=== PATIENT | female | born 1945 | race Caucasian/White ===

== ENCOUNTER 2017-03-31 15:15 | Emergency (ER) | payer OTHER, BC ==
[~2017-03-31] VITALS: Ht 160 cm; Wt 95.3 kg
[2017-03-31] MEDS ORDERED: TOPROL XL25 M1 PO (15:29)
== END 2017-03-31 20:57 | disposition home or self-care (01) ==
LOC: ER 15:15
DX: S43.015A Anterior dislocation of left humerus, initial encounter (principal); S01.422A Laceration with foreign body of left cheek and temporomandibular area, initial encounter; W26.8XXA Contact with other sharp object(s), not elsewhere classified, initial encounter; Y93.89 Activity, other specified; Y92.89 Other specified places as the place of occurrence of the external cause; Y99.8 Other external cause status

== ENCOUNTER 2017-04-02 12:54 | Outpatient (CLI) | payer OTHER, BC ==
[~2017-04-02 12:54] MED LIST: TOPROL XL25 M1 PO
== END 2017-04-02 14:16 | disposition home or self-care (01) ==
LOC: RAD 501 12:54 → MRI 12:54
DX: S43.002A Unspecified subluxation of left shoulder joint, initial encounter (principal)
CPT/HCPCS: 73218